=== PATIENT | male | born 1965 | race Caucasian/White ===

== ENCOUNTER → 2020-05-12 | Outpatient (CLI) | payer MEDICARE ==
--- NOTE | 2020-05-12 13:17 | RAD ---
VENOUS LOWER EXTREMITY LEFT History: Reason: DEEP VEIN THROMBOSIS (DVT) OF LOWER EXTREMITY, UNSPECIFIED CHRONICITY. / Spl. Instructions: / History: . Pain. Calf redness. Comparison: None. Discussion: Multiple longitudinal and transverse high resolution real-time images of the venous system of left lower extremity were obtained with color and Doppler sampling. Nonocclusive thrombus within the left popliteal and peroneal veins. Patent left common femoral, superficial femoral, deep femoral and posterior tibial veins. Patent greater saphenous vein. Impression: 1. Nonocclusive thrombus within the left popliteal and peroneal veins. FOR INTERNAL CODING PURPOSES Critical result: Findings discussed with Dr. FRANCIS's office at 05/12/2020 1:14 PM. RESULT CODE: (C) Electronically signed by: Simeon Diop DO (05/12/2020 1:14 PM) [facility]
== END | disposition home or self-care (01) ==
LOC: US 11:38
PROVIDERS: ATTEND Family Medicine
DX: I82.432 Acute embolism and thrombosis of left popliteal vein (principal); I82.452 Acute embolism and thrombosis of left peroneal vein
CPT/HCPCS: 93971